=== PATIENT | female | born 1975 | race Two or more races ===

== ENCOUNTER 2018-04-05 09:50 | Emergency (ER) | payer OTHER ==
[~2018-04-05] VITALS: Ht 167.6 cm; Wt 95.3 kg
[2018-04-05] MEDS ORDERED: NORVASC5 MG PO (10:14)
[2018-04-05] MEDS ORDERED: ATACAND HCT 321 EAC1 PO (10:14)
== END 2018-04-05 21:39 | disposition home or self-care (01) ==
LOC: ER 09:50
DX: N39.0 Urinary tract infection, site not specified (principal)

== ENCOUNTER 2023-07-09 07:45 | Inpatient (IN) | payer OTHER ==
[~2023-07-09] VITALS: Ht 167.6 cm; Wt 97.5 kg
[~2023-07-09 07:45] MED LIST: ATACAND HCT 321 EAC1 PO; NORVASC5 MG PO
[2023-07-09 09:26] LABS: HEMATOCRIT 37.8 % (36.0-45.00); HEMOGLOBIN 12.3 g/dL (12.0-15.00); MEAN CELL VOLUME 78.9 fL (80.00-100.00); MEAN CORPUSCULAR HEMOGLOBIN 25.7 pg (27.00-32.0); MEAN CORPUSCULAR HGB CONC 32.6 g/dl (32.0-36.0); PLATELET COUNT 280 K/uL (150-450); RED BLOOD COUNT 4.79 M/uL (4.00-6.00); RED CELL DISTRIBUTION WIDTH 15.1 % (11.5-14.5)
[2023-07-09 09:58] LABS: INR 1.08; PARTIAL THROMBOPLASTIN TIME 24.9 SECONDS (22.0-34.0); PROTHROMBIN TIME 11.3 SECONDS (9.0-11.5)
[2023-07-09 10:38] LABS: PH,URINE 5.5 (5.0-8.0); URINE APPEARANCE Clear; URINE BILIRRUBIN Negative (NEGATIVE); URINE BLOOD Negative; URINE COLOR Yellow; URINE GLUCOSE Negative (NEGATIVE); URINE LEUKOCYTE Negative; URINE NITRATE Negative; URINE PROTEIN Negative (NEGATIVE); URINE UROBILINOGEN 0.2 E.U./dl
[2023-07-09 10:39] LABS: URINE BACTERIA 648.8 uL (0.0-1933); URINE EPITHELIAL CELLS 8.1 uL (0.0-38.8); URINE RBC 10.3 uL (0.0-20.8); URINE WBC 6.4 uL (0.0-23.2)
[2023-07-09] MEDS ORDERED: HYDROCHLOROTH12.5 MG PO (10:52)
[2023-07-09] MEDS ORDERED: ALLER-TEC10 MG (10:53)
[2023-07-09] MEDS ORDERED: LIPITOR20 MG (10:54)
[2023-07-09 11:21] LABS: ALBUMIN 3.6 gm/dL (3.4-5.0); BILIRUBIN TOTAL 0.32 mg/dL (0.3-1.2); CREATININE SERUM 0.58 mg/dL (0.55-1.02); GFR 111.92; GLOBULINA 3.2 G/DL (2.4-3.5); POTASSIUM 4.3 mEq/L (3.5-5.1); TOTAL PROTEIN 6.8 gm/dL (6.4-8.2)
[2023-07-12 18:20] LABS: HEMATOCRIT 34.1 % (36.0-45.00); HEMOGLOBIN 11.1 g/dL (12.0-15.00); MEAN CORPUSCULAR HEMOGLOBIN 25.4 pg (27.00-32.0); MEAN CORPUSCULAR HGB CONC 32.5 g/dl (32.0-36.0); PLATELET COUNT 262 K/uL (150-450); RED BLOOD COUNT 4.38 M/uL (4.00-6.00)
[2023-07-14] MEDS ORDERED: ACETAMINOPHEN-1 EAC2 PO (06:59)
[2023-07-14] MEDS ORDERED: PAIN RELIEVER500 M2 PO (06:59)
[2023-07-14] MEDS ORDERED: GABAPENTIN300 MG PO (07:00)
[2023-07-14] MEDS ORDERED: POLY119PG PO (07:00)
[2023-07-14] MEDS ORDERED: SIMETHICONE125 M1 PO (07:00)
== END 2023-07-14 09:07 | disposition home or self-care (01) | DRG 743 ==
LOC: OB/GYN 07-12 05:30 → O/R 07-12 05:30 → OB/GYN 07-12 07:45
PROVIDERS: ADMIT Obstetrics & Gynecology; ATTEND Obstetrics & Gynecology
PROC: 0UT70ZZ Resection of Bilateral Fallopian Tubes, Open Approach (ICD-10-PCS; 2023-07-12)
PROC: 0UT90ZZ Resection of Uterus, Open Approach (ICD-10-PCS; principal; 2023-07-12 10:30)
DX: D25.1 Intramural leiomyoma of uterus (principal); D25.2 Subserosal leiomyoma of uterus; N72 Inflammatory disease of cervix uteri; Z20.822 Contact with and (suspected) exposure to COVID-19